=== PATIENT | female | born 1960 | race Caucasian/White ===

== ENCOUNTER → 2019-07-20 13:16 | Outpatient (CLI) | payer BC ==
[~2019-07-20 13:16] MED LIST: BUPROPION HCL200 M1 PO; HYDROCODON-ACE1 EA10 PO; MOBIC7.5 MG PO; SOMA350 MG PO; TIROSINT50 MCG PO; TRIMETHOPRIM PO; VASOTEC10 MG PO
== END | disposition home or self-care (01) ==
LOC: D.CT 13:00
PROVIDERS: ATTEND Orthopaedic Surgery
DX: S42.201A Unspecified fracture of upper end of right humerus, initial encounter for closed fracture (principal)

== ENCOUNTER 2019-07-24 09:58 | Inpatient (IN) | payer BC ==
[~2019-07-24] VITALS: Ht 154.9 cm; Wt 76.7 kg
[~2019-07-24 09:58] MED LIST changes: -MOBIC7.5 MG PO
[2019-07-24 10:35] LABS: ANION GAP 11.1 mmol/L (8-16); CALCIUM 9.8 mg/dL (8.5-10.1); CARBON DIOXIDE 31.8 mmol/L (21.0-32.0); CREATININE - SERUM 1.5 mg/dL (0.6-1.3); POTASSIUM - SERUM 3.9 mmol/L (3.5-5.1)
[2019-07-24] MEDS ORDERED: MOBIC7.5 MG PO (10:54)
[2019-07-24 11:02] LABS: HEMATOCRIT 40.4 % (36.0-48.0); HEMOGLOBIN 13.1 g/dL (12-16); MCH 28.5 pg (26.0-34.0); MCHC 32.4 g/dL (31.0-37.0); MCV 87.8 fL (80.0-100.0); MEAN PLATELET VOLUME 10.4 fL (7.4-10.4); RBC 4.6 10x6/uL (4.00-5.40); RDW 14.1 % (11.5-14.5); WBC 10.5 10x3/uL (4.8-10.8)
[2019-07-24 11:04] VITALS: BP 107/75; BMI 32.0
[2019-07-24 17:22] VITALS: BP 127/94
--- NOTE | 2019-07-24 17:37 | NUR ---
RECEIVED TO ROOM 1207 VIA BED FROM PACU. A/O X3. NO C/O AT THIS TIME. NEURO CHECKS WNL. AT BEDSIDE. SKIN INTACT WITHOUT REDNESS EXCEPT INCISION TO RIGHT SHOULDER WHICH HAS DRY INTACT DRESSING IN PLACCE. DENIES NEEDS. VSS.
[2019-07-24 17:43] VITALS: BMI 32.0
--- NOTE | 2019-07-24 18:58 | NUR ---
PATIENT RESTING IN BED WITH NO S/S OF DISTRESS AND GUEST AT BEDSIDE. PATIENT STATED HER FEELING IS COMING BACK IN HER ARM AND HAND. PATIENT RATES PAIN 7/10 SHOOTING PAIN. WILL ADMINISTER PAIN MEDS PER ORDERS. BED IN LOWEST POSITION AND CALL LIGHT WITHIN REACH. ENCOURAGED THE PATIENT TO CALL IF SHE HAS NEEDS. WILL CONTINUE TO MONITOR.
--- NOTE | 2019-07-24 19:05 | NUR ---
ATE ABOUT HALF OF SUPPER TRAY. DENIES NEEDS. NO CHANGES NOTED.
[2019-07-24 19:26] VITALS: BP 106/60
[2019-07-25] VITALS (10 sets, daily range): BP systolic 81–107; BP diastolic 49–63; Ht 154.9 cm; Wt 76.7 kg
[2019-07-25 07:01] LABS: MCH 27.6 pg (26.0-34.0); MCHC 31.9 g/dL (31.0-37.0); MCV 86.7 fL (80.0-100.0); MEAN PLATELET VOLUME 10.4 fL (7.4-10.4); RBC 3.69 10x6/uL (4.00-5.40); WBC 8.4 10x3/uL (4.8-10.8)
[2019-07-25 07:06] LABS: HEMOGLOBIN 10.2 g/dL (12-16)
--- NOTE | 2019-07-25 07:15 | NUR ---
RECEIVED BEDSIDE REPORT AND ASSUMED CARE OF PATIENT. PATIENT ALERT AND ORIENTED X 4, WATCHING TV IN BED, AT BEDSIDE. VSS. IV 20 GA TO LEFT AC INFUSING 1/2 NS AT 75 ML/HR WITH NO S/S OF INFILTRATION NOTED. RIGHT ARM IN SLING, STATES SENSATION SLOWLY COMING BACK TO FINGERS, DRESSING TO RIGHT SHOULDER, C/D/I. SCDS REMOVED, SKIN INTACT AND PLACED BACK ON. BBS - CLEAR AND EQUAL ON RA. HEAD TO TOE ASSESSMENT COMPLETED.
--- NOTE | 2019-07-25 07:28 | NUR ---
PATIENT GIVEN BREAKFAST TRAY. NO NEEDS AT THIS TIME.
--- NOTE | 2019-07-25 08:14 | NUR ---
PATEINT ATE 100% OF BREAKFAST, GIVEN MORNING MEDS PER APR.
--- NOTE | 2019-07-25 09:13 | NUR ---
PATIENT WATCHING TV, NO NEEDS AT THIS TIME.
--- NOTE | 2019-07-25 09:45 | NUR ---
PATIENT WALKED IN HALLWAY WITH PT. TOLERATED WELL.
--- NOTE | 2019-07-25 10:17 | NUR ---
PATEINT SITTING UP IN BEDSIDE CHAIR, WATCHING TV, NO NEEDS AT THIS TIME.
--- NOTE | 2019-07-25 10:53 | NUR ---
PATIENTS IV INFILTRATED. IV DISCONTINUED WITH DIRECT PRESSURE HELD AND DRESSED WITH 2X2 AND TAPE. VSS. C/O PAIN TO RIGHT SHOULDER 08/24. PRN MEDS GIVEN.
--- NOTE | 2019-07-25 11:00 | NUR ---
WARM COMPRESS TO RIGHT LEFT UPPER ARM.
--- NOTE | 2019-07-25 11:35 | NUR ---
ICE BAG APPLIED TO RIGHT SHOULDER.
--- NOTE | 2019-07-25 11:52 | NUR ---
ATTEMPTED TO RESTART IV X 1 22 GA TO LEFT FA WITHOUT SUCCESS.
--- NOTE | 2019-07-25 11:56 | NUR ---
SPOKE TO NAHUM FOX WITH DR. STANLEY, ADVISED TO DISCONTINUE THE LAST DOSE OF VANC.
--- NOTE | 2019-07-25 12:30 | NUR ---
SPOKE TO NAHUM ENGLISH REGARDING PATIENTS PAIN 8/10, WITH PRN PAIN MEDS GIVEN, ORDERS TO RESTART THE PERCOCET FOR SEVERE PAIN 8-10 AND CHANGE HYDROCODONE TO SEVERE PAIN 6-10. PRN PERCOCET GIVEN PER APR.
--- NOTE | 2019-07-25 13:21 | NUR ---
PATIENT ATE 80% OF LUNCH TRAY, STATES PAIN IMPROVED RATES 5/10, ASSISTED TO BATHROOM VOIDS AND ASSISTED BACK TO BED.
--- NOTE | 2019-07-25 14:24 | NUR ---
PATIENT WATCHING TV RATES PAIN 4/10 STATES MUCH IMPROVED. NO NEEDS AT THIS TIME.
--- NOTE | 2019-07-25 15:30 | NUR ---
PATIENT WATCHING TV, AT BEDSIDE, VSS. C/O PAIN 6/10 GIVEN PRN PAIN MED [place]CO. USES IS 2000 ML.
--- NOTE | 2019-07-25 16:03 | NUR ---
PATIENT STATES PAIN IMPROVED RATES /10. NO NEEDS AT THIS TIME.
--- NOTE | 2019-07-25 17:34 | NUR ---
PATIENT ATE 50% OF DINNER TRAY. NO NEEDS AT THIS TIME.
--- NOTE | 2019-07-25 19:30 | NUR ---
ALERT RESTING IN BED, DENIES PAIN OR NEEDS AT THIS TIME, SLING AND IMOBLIZER IN PLACE TO R ARM FINGERS WARM PINK WITH GOOD MOVEMENT, SEE SHIFT ASSESSMENT, CALL LIGHT IN REACH
--- NOTE | 2019-07-25 20:33 | MORECARE ---
CASE MANAGEMENT DISCHARGE SUMMARY PATIENT: VIOLETA LOPEZ UNIT: [id number] ADM DATE: 07/24/19 AGE: 58 : 64 SEX: F ROOM/BED: D.1207 AUTHOR: ESTHELA,DOC PHYSICIAN: REFERRING PHYSICIAN: HERMELINDA STANLEY MD DATE OF SERVICE: 07/25/19 Discharge Plan Patient Name: VIOLETA LOPEZ Facility: [facility]:[place] : 1960 Planned Disposition: Home Anticipated Discharge Date: Discharge Date: Expected LOS: Initial Reviewer: [email or web address] Initial Review Date: 07/25/2019 Generated: 07/25/19 9:33 pm Comments DCP- Discharge Planning Updated by [email or web address]: Rashida Yu on 07/25/19 7:[address] Patient Name: VIOLETA LOPEZ Admission Status: Elective Accout number: [id number] Admission Date: 07-24-2019 : 1960 Admission Diagnosis: Attending: EHRMELINDA STANLEY Current LOS: 1 Anticipated DC Date: Planned Disposition: Home Primary Insurance: [employer] Discharge Planning Comments: CM met with patient to complete initial dc planning assessment. CM educated patient on the CM role and verbal consent given by patient to complete assessment. Patient lives at home with family. Patient is independent. At discharge patient plans to return home and feels this is a safe discharge. CM discussed availability of home health, rehab services, and medical equipment. Patient will have family to transport home. Patient denied known discharge needs at this time. CM will continue to follow and will assist as needed with dc plans/needs. Front Desk Monitor: Rashida Yu DCPIA - Discharge Planning Initial Assessment Updated by [email or web address]: Rashida Yu on 07/25/19 8:29 pm * Is the patient Alert and Oriented? Yes * How many steps to enter\exit or inside your home? * PCP KELSIE PACK MD -[place] * Pharmacy [facility] * Preadmission Environment Home with Family * ADLs Independent * Equipment None * List name and contact numbers for known caregivers / representatives who currently or will assist patient after discharge: RANJANA LOPEZ - [facility] - [phone] * Verbal permission to speak to the caregivers and representatives has been obtained from the patient. Yes * Community resources currently utilized None * Additional services required to return to the preadmission environment? No * Can the patient safely return to the preadmission environment? Yes * Has this patient been hospitalized within the prior 30 days at any hospital? No Patient Name: VIOLETA LOPEZ Page [id number] at 2032 All edits/amendments must be made on the electronic document DICTATION DATE: 07/25/192032 RESIN COATER: SYLVAIN 07/25/192032 RPT#: [id number] DC DATE: STATUS: ADM IN [facility] [address] [place] [address] END OF REPORT
[2019-07-26 04:59] VITALS: BP 96/51
[2019-07-26 06:23] LABS: HEMATOCRIT 29.5 % (36.0-48.0); HEMOGLOBIN 9.2 g/dL (12-16); MCH 27.5 pg (26.0-34.0); MCHC 31.2 g/dL (31.0-37.0); MCV 88.1 fL (80.0-100.0); RBC 3.35 10x6/uL (4.00-5.40); RDW 14.2 % (11.5-14.5); WBC 6.7 10x3/uL (4.8-10.8)
--- NOTE | 2019-07-26 07:26 | NUR ---
REPORT RECEIVED. RIGHT SHOULDER IN SLING/IMMOBILIZER. POD 2. PT GETS UP WITH ASSISTANCE. HAS SCDS ON. ON ROOM AIR. AT BEDSIDE. NO NEEDS AT THIS TIME. CALL LIGHT IN REACH. WILL CONTINUE TO MONITOR.
[2019-07-26 08:08] VITALS: BP 100/58
[2019-07-26] MEDS ORDERED: PERCOCET 10-321 EAC1 PO (09:04)
--- NOTE | 2019-07-26 10:22 | NUR ---
DRESSING TO RIGHT SHOULDER CHANGED. DISCHARGE INFORMATION REVIEWED WITH PT. ALL QUESTIONS ANSWERED AT THIS TIME. NO CONCERNS.
--- NOTE | 2019-07-26 11:31 | MORECARE ---
CASE MANAGEMENT DISCHARGE SUMMARY PATIENT: VIOLETA LOPEZ UNIT: [id number] ADM DATE: 07/24/19 AGE: 58 : 64 SEX: F ROOM/BED: D.1207 AUTHOR: ESTHELA,DOC PHYSICIAN: REFERRING PHYSICIAN: HERMELINDA STANLEY MD DATE OF SERVICE: 07/26/19 Discharge Plan Patient Name: VIOLETA LOPEZ Facility: [facility]:[place] : 1960 Planned Disposition: Home Anticipated Discharge Date: 07/26/19 Discharge Date: 07/26/2019 Expected LOS: 2 Initial Reviewer: [email or web address] Initial Review Date: 07/25/2019 Generated: 07/26/19 12:31 pm Comments DCP- Discharge Planning Updated by [email or web address]: Sri López on 07/26/19 10:[address] CM met with patient regarding DC needs/plans. Patient voices no needs at this time. Instructed patient that at her appointment with MD she will be given instructions for her Therapy and when to begin. DCP- Discharge Planning Updated by [email or web address]: Rashida Yu on 07/25/19 7:[address] Patient Name: VIOLETA LOPEZ Admission Status: Elective Accout number: [id number] Admission Date: 07-24-2019 : 1960 Admission Diagnosis: Attending: HERMELINDA STANLEY Current LOS: 1 Anticipated DC Date: Planned Disposition: Home Primary Insurance: [employer] [facility] Discharge Planning Comments: CM met with patient to complete initial dc planning assessment. CM educated patient on the CM role and verbal consent given by patient to complete assessment. Patient lives at home with family. Patient is independent. At discharge patient plans to return home and feels this is a safe discharge. CM discussed availability of home health, rehab services, and medical equipment. Patient will have family to transport home. Patient denied known discharge needs at this time. CM will continue to follow and will assist as needed with dc plans/needs. Vocational Ed Instructor: Rashida Yu DCPIA - Discharge Planning Initial Assessment Updated by [email or web address]: Rashida Yu on 07/25/19 8:29 pm * Is the patient Alert and Oriented? Yes * How many steps to enter\exit or inside your home? * PCP KELSIE PACK MD -[place] * Pharmacy [facility] * Preadmission Environment Home with Family * ADLs Independent * Equipment None * List name and contact numbers for known caregivers / representatives who currently or will assist patient after discharge: RANJANA LOPEZ - [facility] - [phone] * Verbal permission to speak to the caregivers and representatives has been obtained from the patient. Yes * Community resources currently utilized None * Additional services required to return to the preadmission environment? No * Can the patient safely return to the preadmission environment? Yes * Has this patient been hospitalized within the prior 30 days at any hospital? No Last DP export: 07/25/19 7:33 pm Patient Name: VIOLETA LOPEZ Page [id number] at 1131 All edits/amendments must be made on the electronic document DICTATION DATE: 07/26/19 1131 PRODUCTION ADMINISTRATOR: SYLVAIN 07/26/19 1131 RPT#: [id number] DC DATE:07/26/19 STATUS: DIS IN [facility] [address] [place] [address] END OF REPORT
== END 2019-07-26 10:44 | disposition home or self-care (01) | DRG 483 ==
LOC: D.OPS 09:58 → D.PAN 12:30 → D.OPS 13:30 → D.M3 16:58 → D.OPS 16:59 → D.M3 16:59
PROVIDERS: Anesthesiology; ADMIT Orthopaedic Surgery; ATTEND Orthopaedic Surgery
PROC: 0RRJ00Z Replacement of Right Shoulder Joint with Reverse Ball and Socket Synthetic Substitute, Open Approach (ICD-10-PCS; principal; 2019-07-24 12:30)
DX: S42.201A Unspecified fracture of upper end of right humerus, initial encounter for closed fracture (principal); X58.XXXA Exposure to other specified factors, initial encounter; I10 Essential (primary) hypertension; I95.9 Hypotension, unspecified